=== PATIENT | female | born 1980 | race Caucasian/White ===

== ENCOUNTER 2018-09-10 14:55 | Emergency (ER) | payer BC ==
[2018-09-10 15:19] VITALS: BP 143/109
--- NOTE | 2018-09-10 15:42 | UC ---
UC General HPI - HPI Summary HPI Summary: PT IS C/O EPISODIC PAINS IN HER L UPPER ABDOMEN SINCE APRIL. TODAY IT HAS BECOME WORSE. + N/VX3 TODAY. NO DIARRHEA, FEVER OR BLACK STOOL. PT HAS SELF TX WITH TUMS BUT ATE SO MANY THAT IT CAUSED HER CONSTIPATION. DENIES ALCOHOL USE. HX KIDNEY STONES BUT STATES "THIS IS NOT A KIDNEY STONE". - History of Current Complaint Chief Complaint: UCGI Stated Complaint: ABDOMINAL PAIN Time Seen by Provider: 09/10/18 15:00 Hx Obtained From: Patient Hx Last Menstrual Period: "I DON'T KNOW" Pain Intensity: 8 Aggravating: PT NOTED SOME DISCOMFORT WITH BUMPS IN ROAD WHILE DRIVING HER Alleviating: DRINKING LIQUIDS LIKE WATER AND SOMETIMES MILK - Allergy/Home Medications Allergies/Adverse Reactions: Allergies Allergy/AdvReac Type Severity Reaction Status Date / Time No Known Allergies Allergy Verified 09/10/18 15:07 Home Medications: Home Medications NK [No Home Medications Reported] 09/10/18 [History Confirmed 09/10/18] PMH/Surg Hx/FS Hx/Imm Hx - Additional Past Medical History Additional PMH: ENDOMETRIOSIS GI/ History: Kidney Stones - Surgical History Surgical History: Yes Surgery Procedure, Year, and Place: 2017- 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 Negative: Diarrhea Physical Exam Triage Information Reviewed: Yes Appearance: No Pain Distress, Ill-Appearing - POOR COLOR, PALE TO LIGHT LACEY Vital Signs: Initial Vital Signs Temp 96 F 09/10/18 15:07 Pulse 70 09/10/18 15:07 Resp 16 09/10/18 15:07 BP 143/109 09/10/18 15:07 Pulse Ox 100 09/10/18 15:07 Eyes: Positive: Conjunctiva Clear ENT: Positive: Pharynx normal. Negative: Nasal congestion Neck: Positive: Supple, Nontender, No Lymphadenopathy Respiratory: Positive: Lungs clear, Normal breath sounds, No respiratory distress Cardiovascular: Positive: RRR, No Murmur Abdomen Description: Positive: Other: - Flat, hypoactive BS. soft. tender LUQ. No mass or HSM appreciated. No CVA tenderness. no pulsatile mass. Non distended and no guarding. Musculoskeletal: Positive: ROM Intact Neurological: Positive: Alert Psychological: Positive: Normal Response To Family, Other: - Pt at times becomes a very vague historian Skin: Negative: Rashes Course/Dx - Course Course Of Treatment: pt and her male rate setter agree to ER transfer directly from here via car. male rate setter is driving. Report given to Shonda Mackey NP at [facility]. She was advised of LUQ pain radiating to back, n/v and pt consuming large amounts of TUMs so hypercalcemia may be an issue. - Differential Dx - Multi-Symptom Differential Diagnoses: Other - no do not feel AAA and unlikely renal colic. u/ a & hcg defer to ER but doubt source of pain. pancreatitis, PUD, bowel disease and even CA/mets are in the differential. Given her hx of TUMS consumption, pt may have some hypercalcemia as well. - Diagnoses Provider Diagnosis: LUQ abdominal pain Discharge - Sign-Out/Discharge Documenting (check all that apply): Patient Departure All imaging exams completed and their final reports reviewed: No Studies - Discharge Plan Condition: Stable Disposition: HOME Additional Instructions: LEAVE HERE AND GO DIRECTLY TO [facility] DISCUSSED. DO NOT EAT OR DRINK. - Billing Disposition and Condition Condition: STABLE Disposition: Home
[2018-09-10] MEDS ORDERED: Ondansetron ODT TAB* 4 MG PO ONE (15:43)
== END 2018-09-10 15:52 | disposition home or self-care (01) ==
LOC: UCCORT 14:55
DX: R10.12 Left upper quadrant pain (principal); Z87.442 Personal history of urinary calculi; F17.210 Nicotine dependence, cigarettes, uncomplicated
CPT/HCPCS: 99201; A9270-GY; G0463